=== PATIENT | female | born 1970 | race Hispanic/Latino ===

== ENCOUNTER 2017-05-11 21:30 | Emergency (ER) | payer OTHER ==
[~2017-05-11] VITALS: Ht 157.5 cm; Wt 816.9 kg
[2017-05-11] MEDS ORDERED: KETOROLAC TROMETHAMINE 30 MG/ML VIAL IV STA (22:48)
[2017-05-11] MEDS ORDERED: POTASSIUM CHLORIDE 20 MEQ TAB CR PO STA (22:51)
[2017-05-11] MEDS ORDERED: ONDANSETRON HCL 4 MG ORAL DISINTEGRATING TAB PO ONE (23:00)
[2017-05-11] MEDS ORDERED: LEVETIRACETAM500 MG PO (23:18)
[2017-05-11 23:27] VITALS: BP 119/73
== END 2017-05-11 23:25 | disposition home or self-care (01) ==
LOC: FSED 21:30
DX: G40.909 Epilepsy, unspecified, not intractable, without status epilepticus (principal)
CPT/HCPCS: 70460; 80053; 85025; 99283; J1885